=== PATIENT | female | born 1960 | race Two or more races ===

== ENCOUNTER 2019-08-12 13:41 | Emergency (ER) | payer SELFPAY ==
[2019-08-12 15:30] LABS: BASO % 1 % (0-3); EOS # 0.1 x10^3/uL (0.0-0.7); EOS % 2 % (0-3); HEMATOCRIT 41.3 % (36.0-47.0); LYMPH # 1.6 x10^3/uL (1.0-4.8); LYMPH % 32 % (24-48); MEAN CORPUSCULAR HEMOGLOBIN 31 pg (25-35); MEAN CORPUSCULAR HGB CONC 34 g/dL (31-37); MEAN CORPUSCULAR VOLUME 92 fL (79-100); MONO # 0.3 x10^3/uL (0.0-1.1); MONO % 7 % (0-9); NEUT # 2.9 x10^3/uL (1.8-7.7); NEUT % 59 % (31-73); PLATELET COUNT 265 x10^3/uL (140-400); RED BLOOD COUNT 4.52 x10^6/uL (3.50-5.40); RED CELL DISTRIBUTION WIDTH 13.2 % (11.5-14.5)
[2019-08-12] MEDS ORDERED: KETOROLAC 15 MG/ML VIAL. IVP ONE (15:30)
[2019-08-12] MEDS ORDERED: METOCLOPRAMIDE HCL 10 MG/2 ML VIAL. IVP ONE (15:30)
[2019-08-12] MEDS ORDERED: diphenhydrAMINE 50 MG/ML VIAL IVP ONE (15:30)
[2019-08-12] MEDS ORDERED: IV NORMAL SALINE 1000ML BAG 1,000 ML IV ONE (15:30)
[2019-08-12] MEDS ORDERED: DEXAMETHASONE SOD PHOS 4 MG/ML VIAL IVP ONE (15:30)
[2019-08-12 15:46] LABS: ALBUMIN/GLOBULIN RATIO 1.1 (1.0-1.7); CALCIUM 9.3 mg/dL (8.5-10.1); CREATININE 0.8 mg/dL (0.6-1.0); GFR 73.2; MAGNESIUM 1.8 mg/dL (1.8-2.4); TOTAL PROTEIN 7.6 g/dL (6.4-8.2)
[2019-08-12 15:50] LABS: POTASSIUM 2.9 mmol/L (3.5-5.1)
--- NOTE | 2019-08-12 16:03 | PHYS DOC ---
Past Medical History Past Surgical History: Cholecystectomy Additional Information: Never smoked Alcohol Use: None Drug Use: None Adult General Chief Complaint Chief Complaint: HEADACHE HPI HPI A 58-year-old female presents with a sudden onset headache that started today. She reports photophobia and blurry vision and a throbbing headache that starts in her neck and comes around to her bilateral eyes. She feels hot episodically. She normally does have headaches but not like this. She rates as a 7 out of 10 pain and hasn't taken any medications for it yet. She denies nausea, vomiting, or focal weakness. She reports no neck stiffness and occasional abdominal pain but not today. Review of Systems Review of Systems Constitutional: Denies fever or chills Eyes: Denies redness or eye pain HENT: Denies nasal congestion or sore throat Respiratory: Denies cough or shortness of breath Cardiovascular: Denies chest pain or palpitations GI: Denies abdominal pain, nausea, or vomiting : Denies dysuria or hematuria Musculoskeletal: Denies back pain or joint pain Integument: Denies rash or skin lesions Neurologic: Throbbing headache, photophobia, blurry vision but denies focal weak ness or sensory changes Complete systems were reviewed and found to be within normal limits, except as documented in this note. Current Medications Current Medications Current Medications Medications (Trade) Dose Ordered Sig/Rosalinda Start Time Stop Time Status Last Admin Dose Admin Dexamethasone Sodium Phosphate (Decadron) 10 mg 1X ONCE 08/12/19 15:30 08/12/19 15:31 DC 08/12/19 15:36 10 MG Diphenhydramine HCl (Benadryl) 25 mg 1X ONCE 08/12/19 15:30 08/12/19 15:31 DC 08/12/19 15:36 25 MG Ketorolac Tromethamine (Toradol 15mg Vial) 15 mg 1X ONCE 08/12/19 15:30 08/12/19 15:31 DC 08/12/19 15:37 15 MG Metoclopramide HCl (Reglan Vial) 10 mg 1X ONCE 08/12/19 15:30 08/12/19 15:31 DC 08/12/19 15:36 10 MG Orphenadrine Citrate (Norflex) 60 mg 1X ONCE 08/12/19 16:15 08/12/19 16:16 DC 08/12/19 16:51 60 MG Potassium Chloride (Klor-Con) 40 meq 1X ONCE 08/12/19 16:15 08/12/19 16:16 DC 08/12/19 16:51 40 MEQ Sodium Chloride 500 ml @ 500 mls/hr 1X ONCE 08/12/19 18:00 08/12/19 18:59 08/12/19 18:00 500 MLS/HR Allergies Allergies Allergies Coded Allergies Type Severity Reaction Last Updated Verified No Known Drug Allergies 08/12/19 No Physical Exam Physical Exam Constitutional: Well developed, well nourished, moderate distress, diaphoretic. HENT: Normocephalic, atraumatic, oropharynx moist Eyes: PERRL, EOMI, conjunctiva normal, no discharge Neck: Limited range of motion, mild tenderness, supple negative signs for meningitis Cardiovascular: Heart rate normal, regular rhythm Lungs & Thorax: Bilateral breath sounds clear to auscultation, no wheezing Abdomen: Soft, no tenderness Skin: Warm, dry, no erythema, no rash Back: No tenderness, no CVA tenderness Extremities: No tenderness, ROM intact, no edema Neurologic: Alert and oriented X 3, normal motor function, normal sensory function, no focal deficits noted Psychologic: Affect normal, judgement normal, mood normal Current Patient Data Vital Signs Vital Signs Date Time Temp Pulse Resp B/P (MAP) Pulse Ox O2 Delivery O2 Flow Rate FiO2 08/12/19 14:00 97.8 68 18 188/81 (116) 95 Room Air 97.8 Lab Values Laboratory Tests Test 08/12/19 14:45 08/12/19 18:00 White Blood Count 5.0 x10^3/uL (4.0-11.0) Red Blood Count 4.52 x10^6/uL (3.50-5.40) Hemoglobin 14.0 g/dL (12.0-15.5) Hematocrit 41.3 % (36.0-47.0) Mean Corpuscular Volume 92 fL (79-100) Mean Corpuscular Hemoglobin 31 pg (25-35) Mean Corpuscular Hemoglobin Concent 34 g/dL (31-37) Red Cell Distribution Width 13.2 % (11.5-14.5) Platelet Count 265 x10^3/uL (140-400) Neutrophils (%) (Auto) 59 % (31-73) Lymphocytes (%) (Auto) 32 % (24-48) Monocytes (%) (Auto) 7 % (0-9) Eosinophils (%) (Auto) 2 % (0-3) Basophils (%) (Auto) 1 % (0-3) Neutrophils # (Auto) 2.9 x10^3/uL (1.8-7.7) Lymphocytes # (Auto) 1.6 x10^3/uL (1.0-4.8) Monocytes # (Auto) 0.3 x10^3/uL (0.0-1.1) Eosinophils # (Auto) 0.1 x10^3/uL (0.0-0.7) Basophils # (Auto) 0.0 x10^3/uL (0.0-0.2) Sodium Level 144 mmol/L (136-145) Potassium Level 2.9 mmol/L (3.5-5.1) *L Chloride Level 107 mmol/L (98-107) Carbon Dioxide Level 26 mmol/L (21-32) Anion Gap 11 (6-14) Blood Urea Nitrogen 13 mg/dL (7-20) Creatinine 0.8 mg/dL (0.6-1.0) Estimated GFR (Cockcroft-Gault) 73.2 BUN/Creatinine Ratio 16 (6-20) Glucose Level 153 mg/dL (70-99) H Calcium Level 9.3 mg/dL (8.5-10.1) Magnesium Level 1.8 mg/dL (1.8-2.4) Total Bilirubin 1.0 mg/dL (0.2-1.0) Aspartate Amino Transferase (AST) 202 U/L (15-37) H Alanine Aminotransferase (ALT) 346 U/L (14-59) H Alkaline Phosphatase 140 U/L (46-116) H Total Protein 7.6 g/dL (6.4-8.2) Albumin 4.0 g/dL (3.4-5.0) Albumin/Globulin Ratio 1.1 (1.0-1.7) Urine Collection Type Unknown Urine Color Straw Urine Clarity Clear Urine pH 7.5 Urine Specific [place] <=1.005 Urine Protein Negative mg/dL (NEG-TRACE) Urine Glucose (UA) Negative mg/dL (NEG) Urine Ketones (Stick) Negative mg/dL (NEG) Urine Blood Negative (NEG) Urine Nitrite Negative (NEG) Urine Bilirubin Negative (NEG) Urine Urobilinogen Dipstick 0.2 mg/dL (0.2 mg/dL) Urine Leukocyte Esterase Small (NEG) Urine RBC Rare /HPF (0-2) Urine WBC 1-4 /HPF (0-4) Urine Squamous Epithelial Cells Few /LPF Urine Bacteria Few /HPF (0-FEW) Laboratory Tests 08/12/19 14:45 Laboratory Tests 08/12/19 14:45 EKG EKG [] Radiology/Procedures Radiology/Procedures [] Course & Med Decision Making Course & Med Decision Making Patient presented with a sudden onset headache that started this morning, with associated photophobia and blurred vision. Negative for meningeal signs. After analgesics her headache improved significantly, but she still complains of muscle pain in her neck when she turns to the left. She also reported dysuria. And a UA was obtained [place] Disclaimer [place] Disclaimer This electronic medical record was generated, in whole or in part, using a voice recognition dictation system. Departure Departure Impression: Primary Impression: Headache Additional Impression: Neck pain Disposition: 01 HOME, SELF-CARE Condition: IMPROVED Referrals: NO PCP (PCP) ELSA SOSA MD Patient Instructions: Headache, FAQs Scripts Orphenadrine Citrate (ORPHENADRINE CITRATE) 100 Mg Tablet.er 100 MG PO BID PRN for MUSCLE PAIN, #14 TAB Prov: SHAMAR HELM DO 08/12/19 Ondansetron (ONDANSETRON ODT) 4 Mg Tab.rapdis 1 TAB PO PRN Q6-8HRS PRN for NAUSEA, #16 TAB Prov: SHAMAR HELM DO 08/12/19 Butalb/Acetaminophen/Caffeine ([id number] 50-325-40) 1 Each Tablet 1 EACH PO Q6HRS PRN for HEADACHE, #14 TAB Prov: SHAMAR HELM DO 08/12/19 Problem Qualifiers Primary Impression: Headache Headache type: unspecified Headache chronicity pattern: acute headache Intractability: not intractable Qualified Codes: R51 - Headache SHAMAR HELM DO Aug 12, 2019 16:03
[2019-08-12] MEDS ORDERED: ORPHENADRINE CITRATE 60 MG/2 ML VIAL. IV ONE (16:15)
[2019-08-12] MEDS ORDERED: POTASSIUM CHLORIDE 20 MEQ TABLET.ER. PO ONE (16:15)
[2019-08-12 17:30] VITALS: BP 155/85
[2019-08-12] MEDS ORDERED: IV NORMAL SALINE 500ML BAG 500 ML IV ONE (18:00)
[2019-08-12 18:03] LABS: BILIRUBIN,URINE NEGATIVE (NEG); CLARITY,URINE CLEAR; NITRITE,URINE NEGATIVE (NEG); PH,URINE 7.5; PROTEIN,URINE NEGATIVE (NEG-TRACE); UROBILINOGEN,URINE 0.2 mg/dL (0.2 mg/dL)
[2019-08-12 18:07] LABS: COLOR,URINE STRAW
[2019-08-12 18:09] LABS: BACTERIA,URINE FEW /HPF (0-FEW); RBC,URINE RARE /HPF (0-2); SQUAMOUS EPITHELIAL CELL,UR FEW /LPF
[2019-08-12] MEDS ORDERED: BUTA1TAB23 PO (18:24)
[2019-08-12] MEDS ORDERED: ONDA4TAB12 PO (18:24)
[2019-08-12] MEDS ORDERED: ORPH100T PO (18:24)
[2019-08-12] MEDS ORDERED: fentaNYL PF VIAL 100 MCG/2 ML VIAL IV ONE (18:45)
== END 2019-08-12 18:45 | disposition home or self-care (01) ==
LOC: ER 13:41
DX: R51 Headache (principal); M54.2 Cervicalgia; H53.8 Other visual disturbances; H53.149 Visual discomfort, unspecified; R30.0 Dysuria; Z90.49 Acquired absence of other specified parts of digestive tract
CPT/HCPCS: 36415; 80053; 81001; 83735; 85025; 87086; 96374; 96375; 99284; J1100; J1200; J1885; J2360; J2765; J3010; J7030; J7040

== ENCOUNTER 2019-08-18 17:11 | Emergency (ER) | payer SELFPAY ==
[~2019-08-18 17:11] MED LIST: BUTA1TAB23 PO; ONDA4TAB12 PO; ORPH100T PO
[2019-08-18 18:43] LABS: BASO % 1 % (0-3); EOS # 0.1 x10^3/uL (0.0-0.7); EOS % 1 % (0-3); HEMATOCRIT 41.5 % (36.0-47.0); HEMOGLOBIN 14.2 g/dL (12.0-15.5); LYMPH # 1.6 x10^3/uL (1.0-4.8); LYMPH % 22 % (24-48); MEAN CORPUSCULAR HEMOGLOBIN 32 pg (25-35); MEAN CORPUSCULAR HGB CONC 34 g/dL (31-37); MEAN CORPUSCULAR VOLUME 92 fL (79-100); MONO # 0.7 x10^3/uL (0.0-1.1); MONO % 9 % (0-9); NEUT # 4.8 x10^3/uL (1.8-7.7); NEUT % 67 % (31-73); PLATELET COUNT 240 x10^3/uL (140-400); RED BLOOD COUNT 4.52 x10^6/uL (3.50-5.40); RED CELL DISTRIBUTION WIDTH 13.2 % (11.5-14.5); WHITE BLOOD COUNT 7.2 x10^3/uL (4.0-11.0)
--- NOTE | 2019-08-18 18:43 | PHYS DOC ---
Past Medical History Past Medical History: No Pertinent History Past Surgical History: Cholecystectomy Alcohol Use: None Drug Use: None Adult General Chief Complaint Chief Complaint: ABDOMINAL PAIN HPI HPI Patient is a 58 year old [place] speaking female with history of hypertension without taking medication who presents with complaint of epigastric pain. Patient complaining of intermittent episodes of epigastric pain since April as a fullness pain radiation to his back. Patient states the pain lasts for about 20 or 30 minutes but recently getting more constant since this morning she has constant pain and rated her pain for over 10. Patient states during episodes of abdominal pain unable to have a bowel movement. Patient complained of urinary frequency without dysuria. Patient states she lost about 14 pounds and denies fever, chest pain, shortness of breath, nausea and vomiting, seeking medical attention. Patient had the same pain about 3 years ago and had cholecystectomy. Review of Systems Review of Systems Constitutional: Denies fever, reports chills [] Eyes: Denies change in visual acuity, redness, or eye pain [] HENT: Denies nasal congestion or sore throat [] Respiratory: Denies cough or shortness of breath [] Cardiovascular: No additional information not addressed in HPI [] GI: Reports abdominal pain, denies nausea, vomiting, bloody stools or diarrhea [] : Denies dysuria or hematuria [] Musculoskeletal: Denies back pain or joint pain [] Integument: Denies rash or skin lesions [] Neurologic: Denies headache, focal weakness or sensory changes [] Endocrine: Denies polyuria or polydipsia [] All other systems were reviewed and found to be within normal limits, except as documented in this note. Current Medications Current Medications Current Medications Medications (Trade) Dose Ordered Sig/Rosalinda Start Time Stop Time Status Last Admin Dose Admin Info (CONTRAST GIVEN -- Rx MONITORING) 1 each PRN DAILY PRN 08/18/19 19:00 08/18/19 21:33 DC Iohexol (Omnipaque 300 Mg/ml) 75 ml 1X ONCE 08/18/19 19:00 08/18/19 19:01 DC 08/18/19 19:11 75 ML Ketorolac Tromethamine (Toradol 30mg Vial) 30 mg 1X ONCE 08/18/19 18:45 08/18/19 18:46 DC 08/18/19 18:45 30 MG Sodium Chloride 500 ml @ 500 mls/hr 1X ONCE 08/18/19 18:45 08/18/19 19:44 DC 08/18/19 18:44 500 MLS/HR Allergies Allergies Allergies Coded Allergies Type Severity Reaction Last Updated Verified No Known Drug Allergies 08/12/19 No Physical Exam Physical Exam Constitutional: Well developed, well nourished, mild distress, non-toxic appearance. [] HENT: Normocephalic, atraumatic moist oral mucosa. Eyes: PERRLA, EOMI, conjunctiva normal, no discharge. [] Neck: Normal range of motion, no tenderness, supple, no stridor. [] Cardiovascular:Heart rate regular rhythm, no murmur [] Lungs & Thorax: Bilateral breath sounds clear to auscultation [] Abdomen: Bowel sounds normal, soft, no tenderness, no masses, no pulsatile masses. [] Skin: Warm, dry, no erythema, no rash. [] Back: No tenderness, no CVA tenderness. [] Extremities: No tenderness, no cyanosis, no clubbing, ROM intact, no edema. [] Neurologic: Alert and oriented X 3, no focal deficits noted. [] Psychologic: Affect anxious, judgement normal, mood normal. [] Current Patient Data Vital Signs Vital Signs Date Time Temp Pulse Resp B/P (MAP) Pulse Ox O2 Delivery O2 Flow Rate FiO2 08/18/19 21:26 62 15 161/79 (106) 98 Room Air 08/18/19 17:35 97.8 97.8 Lab Values Laboratory Tests Test 08/18/19 18:00 08/18/19 19:41 White Blood Count 7.2 x10^3/uL (4.0-11.0) Red Blood Count 4.52 x10^6/uL (3.50-5.40) Hemoglobin 14.2 g/dL (12.0-15.5) Hematocrit 41.5 % (36.0-47.0) Mean Corpuscular Volume 92 fL (79-100) Mean Corpuscular Hemoglobin 32 pg (25-35) Mean Corpuscular Hemoglobin Concent 34 g/dL (31-37) Red Cell Distribution Width 13.2 % (11.5-14.5) Platelet Count 240 x10^3/uL (140-400) Neutrophils (%) (Auto) 67 % (31-73) Lymphocytes (%) (Auto) 22 % (24-48) L Monocytes (%) (Auto) 9 % (0-9) Eosinophils (%) (Auto) 1 % (0-3) Basophils (%) (Auto) 1 % (0-3) Neutrophils # (Auto) 4.8 x10^3/uL (1.8-7.7) Lymphocytes # (Auto) 1.6 x10^3/uL (1.0-4.8) Monocytes # (Auto) 0.7 x10^3/uL (0.0-1.1) Eosinophils # (Auto) 0.1 x10^3/uL (0.0-0.7) Basophils # (Auto) 0.0 x10^3/uL (0.0-0.2) Sodium Level 146 mmol/L (136-145) H Potassium Level 3.2 mmol/L (3.5-5.1) L Chloride Level 105 mmol/L (98-107) Carbon Dioxide Level 27 mmol/L (21-32) Anion Gap 14 (6-14) Blood Urea Nitrogen 15 mg/dL (7-20) Creatinine 0.9 mg/dL (0.6-1.0) Estimated GFR (Cockcroft-Gault) 63.9 BUN/Creatinine Ratio 17 (6-20) Glucose Level 121 mg/dL (70-99) H Calcium Level 10.1 mg/dL (8.5-10.1) Total Bilirubin 0.9 mg/dL (0.2-1.0) Aspartate Amino Transferase (AST) 502 U/L (15-37) H Alanine Aminotransferase (ALT) 509 U/L (14-59) H Alkaline Phosphatase 212 U/L (46-116) H Total Protein 7.7 g/dL (6.4-8.2) Albumin 4.2 g/dL (3.4-5.0) Albumin/Globulin Ratio 1.2 (1.0-1.7) Lipase 168 U/L (73-393) Urine Collection Type Unknown Urine Color Yellow Urine Clarity Clear Urine pH 8.5 Urine Specific [place] >=1.030 Urine Protein Negative mg/dL (NEG-TRACE) Urine Glucose (UA) Negative mg/dL (NEG) Urine Ketones (Stick) Negative mg/dL (NEG) Urine Blood Negative (NEG) Urine Nitrite Negative (NEG) Urine Bilirubin Negative (NEG) Urine Urobilinogen Dipstick 1.0 mg/dL (0.2 mg/dL) Urine Leukocyte Esterase Moderate (NEG) Urine RBC 1-2 /HPF (0-2) Urine WBC 1-4 /HPF (0-4) Urine Squamous Epithelial Cells Mod /LPF Urine Amorphous Sediment Present /HPF Urine Bacteria 0 /HPF (0-FEW) Laboratory Tests 08/18/19 18:00 Laboratory Tests 08/18/19 18:00 EKG EKG [] Radiology/Procedures Radiology/Procedures [facility] [address] [place] [address] IMAGING REPORT Signed PATIENT: ANITRA OROZCOACCOUNT: [id number] : 1960 LOCATION: ER AGE: 58 SEX: F EXAM STATUS: REG ER ORD. PHYSICIAN: HARRIET WILDE MD REASON: epigastric pain, OMNI 300, 75 ML IV PROCEDURE: CT ABD PELV W/ IV CONTRST ONLY Exam: CT abdomen and pelvis with contrast INDICATION: Epigastric pain TECHNIQUE: Sequential axial images through the abdomen and pelvis obtained following the administration of 75 mL of Omni 300 IV contrast. Sagittal and coronal reformatted images were reconstructed from the axial data and reviewed. Comparisons: None FINDINGS: Heart size is normal. No pericardial effusion. Visualized lung bases are clear. No pleural effusion. Liver, spleen, pancreas and adrenals are unremarkable. Gallbladder surgically absent. Kidneys demonstrate symmetric enhancement. No perinephric inflammation or hydronephrosis. No renal or ureteral calculi. Bladder is distended and appears thin-walled. Uterus is not enlarged. No abnormal adnexal mass. Large and small bowel are unremarkable. Appendix is normal. No free intra-abdominal air or fluid. No obstruction. Abdominal aorta has a normal course and caliber. Abdominal vasculature is patent. No enlarged abdominal lymph nodes are identified. No suspicious osseous lesions or acute fractures. IMPRESSION: Normal appendix. No acute process identified within the abdomen or pelvis. Exposure: One or more of the following in the visualized dose reduction techniques were utilized for this examination: 1. Automated exposure control 2. Adjustment of the MA and/or KV according to patient size 3. Use of iterative of reconstructive technique Electronically signed by: Matthew Stephens MD (08/18/2019 7:28 PM) [facility] DICTATED and SIGNED BY: MATTHEW STEPHENS MD DATE: 08/18/191927 [facility] [address] [place] [address] IMAGING REPORT Signed PATIENT: ANITRA OROZCOACCOUNT: [id number] : 1960 LOCATION: ER AGE: 58 SEX: F EXAM STATUS: REG ER ORD. PHYSICIAN: HARRIET WILDE MD REASON: epigastric pain, history of cholecystectomy, elevated liver function tests PROCEDURE: ABDOMEN LTD Exam: Ultrasound abdomen limited Indication: Epigastric pain Technique: Real-time grayscale and color Doppler images of the right upper quadrant were obtained by the department vegetable i farmworker. Comparisons: CT same day FINDINGS: Increased echogenicity of the liver. Hepatopedal flow noted within the portal vein. Gallbladder surgically absent. Common bile duct measures 5 mm in diameter. Right kidney is not well visualized, however there are no signs of hydronephrosis. Visualized portions of aorta and IVC are unremarkable. Pancreas is not well seen. IMPRESSION: 1. Increased echogenicity of the liver, likely related to hepatic steatosis. 2. Gallbladder is surgically absent. 3. No right-sided hydronephrosis. Electronically signed by: Matthew Stephens MD (08/18/2019 9:29 PM) [facility] DICTATED and SIGNED BY: MATTHEW STEPHENS MD DATE: 08/18/192128 Course & Med Decision Making Course & Med Decision Making Pertinent Labs and Imaging studies reviewed. (See chart for details) Evaluation of patient in ER showed 58-year-old and she is speaking female with complaining of chronic epigastric pain for several months that gradually getting worse. Patient had history of cholecystectomy and unremarkable physical exam. Labs showed elevation of liver function tests without leukocytosis or anemia. CT of abdomen and upper abdominal ultrasound did not show any acute finding. Patient was advised to follow-up with on-call GI specialist and prescription for Zantac and Ultram was given. I've spoken with the patient and/or caregivers. I've explained the patient's condition, diagnosis and treatment plan based on information available to me at this time. I've answered the patient's and/or caregivers questions and addressed any concerns. The patient and/or caregivers have a good understanding the patient's diagnosis, condition and treatment plan as can be expected at this po int. Vital signs have been stabilized. The patient's condition is stable for discharge from the emergency department. The patient will pursue further outpatient evaluation with her primary care provider or other designated consulting physician as outlined in the discharge instructions. Patient and/or caregivers are agreeable to this plan of care and follow-up instructions have been explained in detail. The patient and/or caregivers have received these instructions in written format and expressed understanding of these discharge instructions. The patient and her caregivers are aware that if any significant change in condition or worsening of symptoms should prompt him to immediately return to this of the closest emergency department. If an emergent department is not readily available I would encourage him to call 911. Dragon Disclaimer Dragon Disclaimer This electronic medical record was generated, in whole or in part, using a voice recognition dictation system. Departure Departure Impression: Primary Impression: Epigastric pain Additional Impressions: Elevated liver function tests Hepatic steatosis Disposition: HOME, SELF-CARE (at 2117) Condition: IMPROVED Referrals: NO PCP (PCP) BRAN OCASIO MD Patient Instructions: Abdominal Pain Additional Instructions: Drink plenty of liquids Follow-up with your primary care physician in 3-5 days Return to ER if not getting better Follow-up with GI specialist in 2 or 3 days Do not eat greasy or spicy food Scripts Ranitidine Hcl (ZANTAC) 150 Mg Tablet 1 TAB PO BID for dyspepsia, #30 TAB 0 Refills Prov: HARRIET WILDE MD 08/18/19 Tramadol Hcl (ULTRAM) 50 Mg Tablet 50 MG PO Q6HRS PRN for PAIN, #14 TAB 0 Refills Prov: HARRIET WILDE MD 08/18/19 Problem Qualifiers HARRIET WILDE MD Aug 18, 2019 18:43
[2019-08-18] MEDS ORDERED: IV NORMAL SALINE 500ML BAG 500 ML IV ONE (18:45)
[2019-08-18] MEDS ORDERED: KETOROLAC 30 MG/ML VIAL. IV ONE (18:45)
[2019-08-18 18:51] LABS: CALCIUM 10.1 mg/dL (8.5-10.1); CREATININE 0.9 mg/dL (0.6-1.0); GFR 63.9; POTASSIUM 3.2 mmol/L (3.5-5.1)
[2019-08-18 18:56] LABS: ALBUMIN 4.2 g/dL (3.4-5.0); ALBUMIN/GLOBULIN RATIO 1.2 (1.0-1.7); TOTAL BILIRUBIN 0.9 mg/dL (0.2-1.0); TOTAL PROTEIN 7.7 g/dL (6.4-8.2)
[2019-08-18] MEDS ORDERED: IOHEXOL 300 MG/ML 100ML VIAL. IV ONE (19:00)
[2019-08-18] MEDS ORDERED: CONTRAST GIVEN. MC PRN (19:00)
--- NOTE | 2019-08-18 19:31 | RAD ---
Exam: CT abdomen and pelvis with contrast INDICATION: Epigastric pain TECHNIQUE: Sequential axial images through the abdomen and pelvis obtained following the administration of 75 mL of Omni 300 IV contrast. Sagittal and coronal reformatted images were reconstructed from the axial data and reviewed. Comparisons: None FINDINGS: Heart size is normal. No pericardial effusion. Visualized lung bases are clear. No pleural effusion. Liver, spleen, pancreas and adrenals are unremarkable. Gallbladder surgically absent. Kidneys demonstrate symmetric enhancement. No perinephric inflammation or hydronephrosis. No renal or ureteral calculi. Bladder is distended and appears thin-walled. Uterus is not enlarged. No abnormal adnexal mass. Large and small bowel are unremarkable. Appendix is normal. No free intra-abdominal air or fluid. No obstruction. Abdominal aorta has a normal course and caliber. Abdominal vasculature is patent. No enlarged abdominal lymph nodes are identified. No suspicious osseous lesions or acute fractures. IMPRESSION: Normal appendix. No acute process identified within the abdomen or pelvis. Exposure: One or more of the following in the visualized dose reduction techniques were utilized for this examination: 1. Automated exposure control 2. Adjustment of the MA and/or KV according to patient size 3. Use of iterative of reconstructive technique Electronically signed by: Matthew Cifuentes MD (08/18/2019 7:28 PM) [facility]
[2019-08-18 19:48] LABS: BILIRUBIN,URINE NEGATIVE (NEG); CLARITY,URINE CLEAR; COLOR,URINE YELLOW; NITRITE,URINE NEGATIVE (NEG); PH,URINE 8.5; PROTEIN,URINE NEGATIVE (NEG-TRACE)
[2019-08-18 19:53] LABS: SQUAMOUS EPITHELIAL CELL,UR MOD /LPF
[2019-08-18 19:54] LABS: AMORPHOUS SEDIMENT,UR PRESENT /HPF; BACTERIA,URINE 0 /HPF (0-FEW)
[2019-08-18] MEDS ORDERED: TRAM-48 PO (21:21)
[2019-08-18] MEDS ORDERED: RANI-376 PO (21:21)
[2019-08-18 21:26] VITALS: BP 161/79
--- NOTE | 2019-08-18 21:32 | RAD ---
Exam: Ultrasound abdomen limited Indication: Epigastric pain Technique: Real-time grayscale and color Doppler images of the right upper quadrant were obtained by the department violin mechanic. Comparisons: CT same day FINDINGS: Increased echogenicity of the liver. Hepatopedal flow noted within the portal vein. Gallbladder surgically absent. Common bile duct measures 5 mm in diameter. Right kidney is not well visualized, however there are no signs of hydronephrosis. Visualized portions of aorta and IVC are unremarkable. Pancreas is not well seen. IMPRESSION: 1. Increased echogenicity of the liver, likely related to hepatic steatosis. 2. Gallbladder is surgically absent. 3. No right-sided hydronephrosis. Electronically signed by: Matthew Cifuentes MD (08/18/2019 9:29 PM) [facility]
--- NOTE | 2019-08-20 06:42 | EKG ---
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
== END 2019-08-18 21:30 | disposition home or self-care (01) ==
LOC: ER 17:11
DX: R10.13 Epigastric pain (principal); R94.5 Abnormal results of liver function studies; K76.0 Fatty (change of) liver, not elsewhere classified; R35.0 Frequency of micturition; R63.0 Anorexia; Z90.49 Acquired absence of other specified parts of digestive tract
CPT/HCPCS: 36415; 74177; 76705; 80053; 81001; 83690; 85025; 87086; 93005; 96374; 99285; J1885; J7040; Q9967

== ENCOUNTER 2021-07-21 17:08 | Emergency (ER) | payer MEDICAID ==
[~2021-07-21 17:08] MED LIST changes: +RANI-376 PO; +TRAM-48 PO
== END 2021-07-21 18:11 | disposition left against medical advice (07) ==
LOC: ER 17:08
DX: R42 Dizziness and giddiness (principal); Z53.21 Procedure and treatment not carried out due to patient leaving prior to being seen by health care provider

== ENCOUNTER → 2021-07-30 | Outpatient (CLI) | payer MEDICAID ==
--- NOTE | 2021-07-30 12:40 | RAD ---
MR LUMBAR SPINE [id number] Date: 07/30/2021 11:21 AM Indication: DISC HERNIATION W/ RADICULOPATHY Comparison: CT abdomen pelvis 08/18/2019. Technique: Multi-planar multi-weighted magnetic resonance imaging of the lumbar spine was performed w ithout intravenous contrast using the standard lumbar spine protocol. FINDINGS: The lumbar spine is normally aligned. No acute fracture. Mild multilevel degenerative disc desiccatio n and disc height loss. No marrow replacing process to suggest malignancy. The conus terminates at a normal level. No abnormal signal is seen within the visualized distal spina l cord. No clumping of intrathecal nerve roots. No soft tissue abnormality in the visualized abdomen or pelvis. T12-L1: No disc bulge. No facet arthropathy. No significant spinal stenosis or neural foraminal narro wing. L1-L2: No disc bulge. No facet arthropathy. No significant spinal stenosis or neural foraminal narrow ing. L2-L3: No disc bulge. No facet arthropathy. No significant spinal stenosis or neural foraminal narrow ing. L3-L4: Disc bulge. Mild facet arthropathy. No significant spinal stenosis. Mild left neural foraminal narrowing. L4-L5: Disc bulge. Mild facet arthropathy. No significant spinal stenosis. Mild bilateral neural fora mei narrowing. L5-S1: Disc bulge with annular tear and right far lateral protrusion. Mild facet arthropathy. Mild sp inal stenosis. Moderate to severe right and mild left neural foraminal narrowing. IMPRESSION: Mild spondylosis, worst at L5-S1 with moderate to severe narrowing of the right neural foramen. Electronically signed by: Christian Callahan MD (07/30/2021 12:37 PM) [id number]
== END ==
LOC: MRI 13:04
PROVIDERS: ATTEND Physician Assistant
DX: M47.817 Spondylosis without myelopathy or radiculopathy, lumbosacral region (principal); M48.07 Spinal stenosis, lumbosacral region; M51.37 Other intervertebral disc degeneration, lumbosacral region; M51.27 Other intervertebral disc displacement, lumbosacral region; M48.8X7 Other specified spondylopathies, lumbosacral region
CPT/HCPCS: 72148